=== PATIENT | female | born 1965 | race African-American/Black ===

== ENCOUNTER → 2017-07-22 | Outpatient (CLI) | payer OTHER ==
[~2017-07-22] MED LIST: ALBU90OI6; BUDE6HFA; BUTASPCAFT; DICL75ER; IPRAOI; LORA10; METO25ER; MONT10T; Maxalt10 MG; NAPR500; NORT10; Omeprazole20 M1; Ondansetron Odt8 MG; TIOT18; UREATC
[2017-07-24 11:58] LABS: HPV Genotype 16 Not Detected (NOTDET); HPV Genotype 18 Not Detected (NOTDET)
[2017-07-30 12:27] LABS: HPV High Risk Other Not Detected (NOTDET)
== END | disposition home or self-care (01) ==
LOC: LAB 11:36
PROVIDERS: Obstetrics & Gynecology
DX: Z01.419 Encounter for gynecological examination (general) (routine) without abnormal findings (principal)
CPT/HCPCS: 87624; G0123

== ENCOUNTER → 2017-09-16 | Outpatient (CLI) | payer OTHER | LOC: PLD 12:43 → LAB SHORT 12:43 | DX: N92.0 Excessive and frequent menstruation with regular cycle (principal) | CPT/HCPCS: 88305 ==

== ENCOUNTER 2020-04-05 20:11 | Emergency (ER) | payer OTHER ==
[~2020-04-05] VITALS: Ht 162.6 cm; Wt 63.5 kg
[2020-04-05] MEDS ORDERED: Prednisone10 MG PO (20:42)
[2020-04-05] MEDS ORDERED: PREG25 PO (20:43)
[2020-04-05] MEDS ORDERED: CYCL10 PO (20:44)
[2020-04-05] MEDS ORDERED: MAGNESIUM OXID500 MG PO (20:45)
[2020-04-05] MEDS ORDERED: HYDCHL25 PO (20:46)
== END 2020-04-05 20:40 | disposition home or self-care (01) ==
LOC: ER 20:11
DX: S80.11XA Contusion of right lower leg, initial encounter (principal); Z79.52 Long term (current) use of systemic steroids; Z79.899 Other long term (current) drug therapy; Z79.82 Long term (current) use of aspirin; Z88.5 Allergy status to narcotic agent; X58.XXXA Exposure to other specified factors, initial encounter
CPT/HCPCS: 99282

== ENCOUNTER → 2022-02-25 | Outpatient (CLI) | payer OTHER ==
[~2022-02-25] MED LIST changes: +CYCL10 PO; +HYDCHL25 PO; +MAGNESIUM OXID500 MG PO; +PREG25 PO; +Prednisone10 MG PO
== END | disposition home or self-care (01) ==
LOC: LAB 16:16 → LAB SHORT 16:16
DX: E53.8 Deficiency of other specified B group vitamins (principal)
CPT/HCPCS: 82607; 82746

== ENCOUNTER → 2022-06-25 | Outpatient (CLI) | payer OTHER ==
[2022-06-26 08:13] LABS: RHEUMATOID ARTHRITIS FACTOR <10.0 IU/mL (<14.0)
== END | disposition home or self-care (01) ==
LOC: LAB SHORT 14:57
PROVIDERS: Internal Medicine Hematology & Oncology
DX: D70.9 Neutropenia, unspecified (principal); M60.9 Myositis, unspecified
CPT/HCPCS: 85651; 86038; 86431

== ENCOUNTER 2024-09-08 12:28 | Emergency (ER) | payer OTHER ==
[~2024-09-08] VITALS: Ht 193 cm; Wt 63.5 kg
[2024-09-08] MEDS ORDERED: Famotidine 10 MG/ML 2ML Vial IV ONE ×2 (12:35→17:05)
[2024-09-08] MEDS ORDERED: DiphenhydrAMINE HCl 50 MG/ML 1ML Vial IV ONE ×2 (12:35→17:05)
[2024-09-08] MEDS ORDERED: MethylPREDNISolone Sod Succ 125 MG Vial IV ONE (12:35)
[2024-09-08] MEDS ORDERED: EpiNEPhrine 1 MG/1 ML 1ML Vial IM ONE ×2 (12:35→18:10)
[2024-09-08] MEDS ORDERED: EPIPEN0.3 MG/0.1 IM ×2 (14:33→17:53)
[2024-09-08] MEDS ORDERED: Prednisone20 MG PO (20:40)
[2024-09-08] MEDS ORDERED: ALLEGRA ALLERGY60 MG PO (20:40)
[2024-09-08 20:53] VITALS: BP 135/88
== END 2024-09-08 22:53 | disposition home or self-care (01) ==
LOC: ER 12:28
DX: T63.441A Toxic effect of venom of bees, accidental (unintentional), initial encounter (principal); R22.0 Localized swelling, mass and lump, head; R06.02 Shortness of breath; R11.0 Nausea; J45.909 Unspecified asthma, uncomplicated; I10 Essential (primary) hypertension; Z59.89 Other problems related to housing and economic circumstances; Z88.5 Allergy status to narcotic agent; Z79.899 Other long term (current) drug therapy; Z79.82 Long term (current) use of aspirin
CPT/HCPCS: 96372-59; 96374; 96375; 96376; 99284-25; J0171; J1200; J2919